=== PATIENT | male | born 1960 | race Caucasian/White ===

== ENCOUNTER 2016-10-11 15:44 | Emergency (ER) | payer BC ==
[~2016-10-11] VITALS: Ht 176.5 cm; Wt 70.3 kg
[2016-10-11] MEDS ORDERED: OLME1TAB35 PO (16:08)
--- NOTE | 2016-10-11 16:11 | EKG ---
[facility] [address] [place] [address] Test Date: 2016-10-11 Test Time: 15:53:27 Pat Name: HALIE CACERES Department: Room: Gender: M Senior Accounting Clerk: : 1960 Requested By: ANKITA COSME Order Number: [id number] Reading MD: Vashti Sierra Measurements Intervals [place] Rate: 64 P: 45 WI: 164 QRS: 16 QRSD: 80 T: 24 QT: 384 QTc: 400 Interpretive Statements SINUS RHYTHM NORMAL ECG Electronically Signed On 10-15-2016 9:25:40 CDT by Vashti Sierra
[2016-10-11] MEDS ORDERED: ASPIRIN ENTERIC COATED 325 MG TABLET.DR. PO ONE (16:15)
[2016-10-11 16:53] LABS: BASO # 0.1 x10^3/uL (0.0-0.2); BASO % 1 % (0-3); EOS % 1 % (0-3); HEMATOCRIT 39.7 % (39.0-53.0); HEMOGLOBIN 13.3 g/dL (13.0-17.5); LYMPH # 1.1 x10^3/uL (1.0-4.8); LYMPH % 12 % (24-48); MEAN CORPUSCULAR HEMOGLOBIN 31 pg (25-35); MEAN CORPUSCULAR HGB CONC 33 g/dL (31-37); MEAN CORPUSCULAR VOLUME 93 fL (79-100); MONO % 6 % (0-9); NEUT % 80 % (31-73); PLATELET COUNT 236 x10^3/uL (140-400); RED BLOOD COUNT 4.28 x10^6/uL (4.30-5.70); RED CELL DISTRIBUTION WIDTH 14.2 % (11.5-14.5)
[2016-10-11 17:00] VITALS: BP 145/85
[2016-10-11 17:03] LABS: CALCIUM 9.5 mg/dL (8.5-10.1); GFR 77.3; PROTHROMBIN TIME PATIENT 12.5 SEC (11.7-14.0)
[2016-10-11 17:07] LABS: CREATINE KINASE 231 U/L (39-308)
[2016-10-11 17:08] LABS: ALBUMIN 4.2 g/dL (3.4-5.0); ALBUMIN/GLOBULIN RATIO 1.3 (1.0-1.7); TOTAL BILIRUBIN 0.3 mg/dL (0.2-1.0); TOTAL PROTEIN 7.4 g/dL (6.4-8.2)
[2016-10-11 17:09] LABS: BILIRUBIN,URINE NEGATIVE (NEG); GLUCOSE,URINE NEGATIVE (NEG); NITRITE,URINE NEGATIVE (NEG); PROTEIN,URINE NEGATIVE (NEG-TRACE); UROBILINOGEN,URINE 0.2 mg/dL (0.2 mg/dL)
[2016-10-11] MEDS ORDERED: IOHEXOL 300 MG/ML 75 ML VIAL ONE (17:11)
[2016-10-11 17:15] LABS: BARBITURATES NEG (NEG); BENZODIAZEPINES NEG (NEG); CANNABINOIDS POS (NEG); COCAINE NEG (NEG); METHADONE NEG (NEG); OPIATES NEG (NEG); PHENCYCLIDINE NEG (NEG)
[2016-10-11] MEDS ORDERED: IOHEXOL 300 MG/ML 75 ML VIAL IV ONE ×2 (17:15→18:00)
[2016-10-11] MEDS ORDERED: CONTRAST GIVEN MC PRN (17:15)
[2016-10-11 17:23] LABS: BACTERIA,URINE 0 /HPF (0-FEW); RBC,URINE 0 /HPF (0-2); WBC,URINE RARE /HPF (0-4)
--- NOTE | 2016-10-11 17:35 | RAD ---
Portable chest, 10/11/2016: History: Chest pain The heart size and pulmonary vascularity are normal. The lungs are clear. There is no evidence of pleural fluid. IMPRESSION: No acute cardiopulmonary abnormality is detected.
--- NOTE | 2016-10-11 17:48 | RAD ---
Examination: CT abdomen and pelvis with IV contrast Technique: Axial CT images of the abdomen pelvis were performed with IV contrast. Coronal and sagittal deformities are performed HISTORY: History of abdominal pain for 3 months COMPARISON: None Exposure: One or more of the following individualized dose reduction techniques were utilized for this examination: 1. Automated exposure control 2. Adjustment of the mA and/or kV according to patient size 3. Use of iterative reconstruction technique FINDINGS: Bibasilar lungs are clear. No evidence of free air identified in the abdomen. The visualized liver, spleen, adrenals grossly appears unremarkable. The gallbladder is mildly distended. The stomach is mildly distended. There is mild thickened appearance of the wall of the stomach. The small bowel is nondilated. The visualized appendix grossly appears unremarkable. Feces and gas noted in the colon. Moderate amount of stool noted throughout the colon. Urinary bladder is mildly distended. Bilateral kidneys enhance symmetrically. Moderate aortic atherosclerosis. The visualized pancreas grossly appears unremarkable. Sclerotic densities identified in the superior endplate of L4 inferior endplate of L3 likely secondary to degenerative changes. Moderate degenerative changes lumbar spine. IMPRESSION: 1. No acute intra-abdominal findings. There is mild thickened appearance of the stomach wall probably due to mild distention or gastritis. Electronically signed by: Bari Ibarra MD (10/11/2016 5:44 PM) [facility]
--- NOTE | 2016-10-11 17:54 | PHYS DOC ---
Past Medical History Past Medical History: High Cholesterol, Hypertension Past Surgical History: No Surgical History Alcohol Use: None Drug Use: Marijuana Adult General Chief Complaint Chief Complaint: CHEST WALL PAIN HPI HPI Patient is a 56 year old male presenting to the emergency department for evaluation of abdominal pain dizziness weight loss generalized fatigue and malaise. Patient says the generalized malaise and fatigue has been going on for 4-5 months but he is stubborn and has not seen a physician. He says that he has been urinating more than usual and he has lost approximately 30 pounds over the past 4 months. Triage note says that he has chest pain however on exam this is actually epigastric abdominal pain. He says that this symptom has been going on for 2 months and he seems to have a persistent discomfort however certain movements of his torso and eating to make it worse. He says that he has been drinking plenty of fluids but he has not been eating very much. He says that he has chronic alcoholism but he has stopped over the past several months. Denies any vomiting black or bloody stools chest pain shortness of breath diaphoresis unilateral weakness numbness or tingling. The dizziness is present really present when he sits up or stands up and when he walks around. He says that it is a sensation that he is going to pass out and there is no room spinning. He just feels lightheaded but there has been no syncope episodes. Review of Systems Review of Systems Constitutional: Denies fever or chills [] Eyes: Denies change in visual acuity, redness, or eye pain [] HENT: Denies nasal congestion or sore throat [] Respiratory: Denies cough or shortness of breath [] Cardiovascular: No additional information not addressed in HPI [] GI: + abdominal pain. No nausea, vomiting, bloody stools or diarrhea [] : Denies dysuria or hematuria [] Musculoskeletal: Denies back pain or joint pain [] Integument: Denies rash or skin lesions [] Neurologic: Denies headache, focal weakness. + dizziness sensory changes [] Current Medications Current Medications Current Medications Medications (Trade) Dose Ordered Sig/Brent Start Time Stop Time Status Last Admin Dose Admin Aspirin (Ecotrin) 325 mg 1X ONCE 10/11/16 16:15 10/11/16 16:16 DC 10/11/16 16:51 325 MG Info (Do NOT chart on this entry -- for MONITORING) 1 each PRN DAILY PRN 10/11/16 17:15 10/13/16 17:14 Iohexol (Omnipaque 300 Mg/ml) 75 ml 1X ONCE 10/11/16 18:00 10/11/16 18:01 DC Allergies Allergies Allergies Coded Allergies Type Severity Reaction Last Updated Verified No Known Drug Allergies 10/11/16 No Physical Exam Physical Exam Constitutional: Well developed, well nourished, no acute distress, non-toxic appearance. [] HENT: Normocephalic, atraumatic, bilateral external ears normal, oropharynx moist, no oral exudates, nose normal. [] Eyes: PERRLA, EOMI, conjunctiva normal, no discharge. [] Neck: Normal range of motion, no tenderness, supple, no stridor. [] Cardiovascular:Heart rate regular rhythm, no murmur [] Lungs & Thorax: Bilateral breath sounds clear to auscultation [] Abdomen: Bowel sounds normal, soft, + epigastric tenderness, no rebound, guarding, no masses, no pulsatile masses. [] Skin: Warm, dry, no erythema, no rash. [] Back: No tenderness, no CVA tenderness. [] Extremities: No tenderness, no cyanosis, no clubbing, ROM intact, no edema. [] Neurologic: Alert and oriented X 3, normal motor function, normal sensory function, no focal deficits noted. [] Current Patient Data Vital Signs Vital Signs Date Time Temp Pulse Resp B/P (MAP) Pulse Ox O2 Delivery O2 Flow Rate FiO2 10/11/16 15:53 98.9 68 18 142/92 (109) 97 Room Air 98.9 Lab Values Laboratory Tests Test 10/11/16 16:30 10/11/16 17:00 White Blood Count 9.0 x10^3/uL (4.0-11.0) Red Blood Count 4.28 x10^6/uL (4.30-5.70) L Hemoglobin 13.3 g/dL (13.0-17.5) Hematocrit 39.7 % (39.0-53.0) Mean Corpuscular Volume 93 fL (79-100) Mean Corpuscular Hemoglobin 31 pg (25-35) Mean Corpuscular Hemoglobin Concent 33 g/dL (31-37) Red Cell Distribution Width 14.2 % (11.5-14.5) Platelet Count 236 x10^3/uL (140-400) Neutrophils (%) (Auto) 80 % (31-73) H Lymphocytes (%) (Auto) 12 % (24-48) L Monocytes (%) (Auto) 6 % (0-9) Eosinophils (%) (Auto) 1 % (0-3) Basophils (%) (Auto) 1 % (0-3) Neutrophils # (Auto) 7.2 x10^3uL (1.8-7.7) Lymphocytes # (Auto) 1.1 x10^3/uL (1.0-4.8) Monocytes # (Auto) 0.5 x10^3/uL (0.0-1.1) Eosinophils # (Auto) 0.1 x10^3/uL (0.0-0.7) Basophils # (Auto) 0.1 x10^3/uL (0.0-0.2) Prothrombin Time 12.5 SEC (11.7-14.0) Prothrombin Time INR 1.0 (0.8-1.1) PTT 24 SEC (24-38) Sodium Level 143 mmol/L (136-145) Potassium Level 4.0 mmol/L (3.5-5.1) Chloride Level 103 mmol/L (98-107) Carbon Dioxide Level 31 mmol/L (21-32) Anion Gap 9 (6-14) Blood Urea Nitrogen 9 mg/dL (8-26) Creatinine 1.0 mg/dL (0.7-1.3) Estimated GFR (Cockcroft-Gault) 77.3 BUN/Creatinine Ratio 9 (6-20) Glucose Level 111 mg/dL (70-99) H Calcium Level 9.5 mg/dL (8.5-10.1) Total Bilirubin 0.3 mg/dL (0.2-1.0) Aspartate Amino Transferase (AST) 21 U/L (15-37) Alanine Aminotransferase (ALT) 26 U/L (16-63) Alkaline Phosphatase 45 U/L (46-116) L Creatine Kinase 231 U/L (39-308) Troponin I Quantitative < 0.017 ng/mL (0.000-0.055) BW-Vjh-L-Type Natriuretic Peptide 260 pg/mL (0-124) H Total Protein 7.4 g/dL (6.4-8.2) Albumin 4.2 g/dL (3.4-5.0) Albumin/Globulin Ratio 1.3 (1.0-1.7) Lipase 169 U/L (73-393) Ethyl Alcohol Level < 10 mg/dL (0-10) Urine Collection Type Unknown Urine Color Yellow Urine Clarity Clear Urine pH 7.0 Urine Specific [place] <=1.005 Urine Protein Negative mg/dL (NEG-TRACE) Urine Glucose (UA) Negative mg/dL (NEG) Urine Ketones (Stick) Negative mg/dL (NEG) Urine Blood Negative (NEG) Urine Nitrite Negative (NEG) Urine Bilirubin Negative (NEG) Urine Urobilinogen Dipstick 0.2 mg/dL (0.2 mg/dL) Urine Leukocyte Esterase Negative (NEG) Urine RBC 0 /HPF (0-2) Urine WBC Rare /HPF (0-4) Urine Squamous Epithelial Cells None /LPF Urine Bacteria 0 /HPF (0-FEW) Urine Opiates Screen Neg (NEG) Urine Methadone Screen Neg (NEG) Urine Barbiturates Neg (NEG) Urine Phencyclidine Screen Neg (NEG) Urine Amphetamine/Methamphetamine Neg (NEG) Urine Benzodiazepines Screen Neg (NEG) Urine Cocaine Screen Neg (NEG) Urine Cannabinoids Screen Pos (NEG) Urine Ethyl Alcohol Neg (NEG) Laboratory Tests 10/11/16 16:30 Laboratory Tests 10/11/16 16:30 EKG EKG Sinus rhythm at 64 bpm with normal axis no obvious ST elevation or depression and normal T waves. Radiology/Procedures Radiology/Procedures Examination: CT abdomen and pelvis with IV contrast Technique: Axial CT images of the abdomen pelvis were performed with IV contrast. Coronal and sagittal deformities are performed HISTORY: History of abdominal pain for 3 months COMPARISON: None Exposure: One or more of the following individualized dose reduction techniques were utilized for this examination: 1. Automated exposure control 2. Adjustment of the mA and/or kV according to patient size 3. Use of iterative reconstruction technique FINDINGS: Bibasilar lungs are clear. No evidence of free air identified in the abdomen. The visualized liver, spleen, adrenals grossly appears unremarkable. The gallbladder is mildly distended. The stomach is mildly distended. There is mild thickened appearance of the wall of the stomach. The small bowel is nondilated. The visualized appendix grossly appears unremarkable. Feces and gas noted in the colon. Moderate amount of stool noted throughout the colon. Urinary bladder is mildly distended. Bilateral kidneys enhance symmetrically. Moderate aortic atherosclerosis. The visualized pancreas grossly appears unremarkable. Sclerotic densities identified in the superior endplate of L4 inferior endplate of L3 likely secondary to degenerative changes. Moderate degenerative changes lumbar spine. IMPRESSION: 1. No acute intra-abdominal findings. There is mild thickened appearance of the stomach wall probably due to mild distention or gastritis. Electronically signed by: Bari Ibarra MD (10/11/2016 5:44 PM) [facility] DICTATED and SIGNED BY: BARI IBARRA MD DATE: 10/11/161737 Portable chest, 10/11/2016: History: Chest pain The heart size and pulmonary vascularity are normal. The lungs are clear. There is no evidence of pleural fluid. IMPRESSION: No acute cardiopulmonary abnormality is detected. DICTATED and SIGNED BY: ALEXA DORMAN MD DATE: 10/11/161731 Course & Med Decision Making Course & Med Decision Making Patient's CT consistent with gastritis which goes along with his clinical picture as well. Patient's labs are unremarkable and his EKG are 2 troponin are negative more than 6 hours out from the onset of his epigastric pain. His heart score is equal to 2 and is safe for outpatient treatment in my opinion especially considering I do not think this is cardiac rather it is gastrointestinal related. His BNP is slightly elevated which I discussed with him and he could follow with cardiology and get an outpatient echocardiogram if desired. Patient says he has been urinating a lot so I will stop him on his diuretic given he has not been taking his medications as prescribed anyways. He says he takes a half dose every once a while so we will adjust his medications to just the Norvasc and olmesartan. Patient aware and agreeable with plan for discharge and verbalized understanding of the need for short-term follow-up and strict ER return precautions discussed worsening pain fevers vomiting or other general concerns. Dragon Disclaimer Dragon Disclaimer This electronic medical record was generated, in whole or in part, using a voice recognition dictation system. Departure Departure Impression: Primary Impression: Dizziness Additional Impressions: Abdominal pain Elevated brain natriuretic peptide (BNP) level Disposition: 01 HOME, SELF-CARE Condition: GOOD Referrals: ZULMA ESPINOZA MD (PCP) RUBA JAMESON MD Patient Instructions: Gastritis, Adult Additional Instructions: KEEP DRINKING PLENTY OF FLUIDS. STOP TAKING YOUR PRESCRIBED BLOOD PRESSURE MEDICATION AND TAKE THE MEDICATIONS I PRESCRIBED. FOLLOW WITH YOUR PCP THIS WEEK AND THE GI DOC [facility]. THANK YOU! Scripts Olmesartan Medoxomil (BENICAR) 40 Mg Tablet 1 TAB PO DAILY, #30 TAB 0 Refills Prov: ANKITA COSME DO 10/11/16 Amlodipine Besylate (NORVASC) 5 Mg Tablet 1 TAB PO DAILY, #30 TAB 0 Refills Prov: ANKITA COSME DO 10/11/16 Omeprazole Magnesium (PRILOSEC OTC) 20 Mg Tablet. 2 TAB PO DAILY, #30 TAB 2 Refills Prov: ANKITA COSME DO 10/11/16 Problem Qualifiers ANKITA COSME DO Oct 11, 2016 17:54
[2016-10-11] MEDS ORDERED: AMLO5TAB4 PO (18:16)
[2016-10-11] MEDS ORDERED: OMEP20TA63 PO (18:16)
[2016-10-11] MEDS ORDERED: OLME40TA12 PO (18:16)
== END 2016-10-11 18:30 | disposition home or self-care (01) ==
LOC: ER 15:44
DX: R10.13 Epigastric pain (principal); E78.00 Pure hypercholesterolemia, unspecified; R42 Dizziness and giddiness; R53.83 Other fatigue; I10 Essential (primary) hypertension; Z91.14 Patient's other noncompliance with medication regimen; Z79.82 Long term (current) use of aspirin
CPT/HCPCS: 36415; 71010; 74177; 80053; 80307; 81001; 82550; 83690; 83880; 84484; 85025; 85610; 85730; 93005; 99285; G0480; G0479

== ENCOUNTER → 2016-10-28 | Day surgery (SDC) | payer BC ==
[~2016-10-28] MED LIST: AMLO5TAB4 PO; HYDROmorphone 2 MG/ML VIAL IV PRN; IV RINGERS,LACTATED 1000ML 1,000 ML IV SCH; LIDOCAINE 1% PF 2 ML VIAL. ID PRN; LIDOCAINE 2% PF Vial for OR 5 ML VIAL. ONE; MORPHINE SULFATE 2 MG/ML DISP.SYRIN. IV PRN; OLME1TAB35 PO; OLME40TA12 PO; OMEP20TA63 PO; ONDANSETRON PF 4 MG/2 ML VIAL. IV PRN; PROCHLORPERAZINE 10 MG/2 ML VIAL. IV PRN; PROPOFOL 20 ML IV ONE; fentaNYL PF VIAL 100 MCG/2 ML VIAL IV PRN
[2016-10-28 07:50] VITALS: BP 93/51
== END | disposition home or self-care (01) ==
LOC: ENDOS 05:59
PROVIDERS: ATTEND Internal Medicine Gastroenterology
DX: Z12.11 Encounter for screening for malignant neoplasm of colon (principal); K64.0 First degree hemorrhoids; K29.50 Unspecified chronic gastritis without bleeding; I10 Essential (primary) hypertension; M19.049 Primary osteoarthritis, unspecified hand; F41.9 Anxiety disorder, unspecified; F32.9 Major depressive disorder, single episode, unspecified; Z87.39 Personal history of other diseases of the musculoskeletal system and connective tissue; Z86.69 Personal history of other diseases of the nervous system and sense organs; Z88.6 Allergy status to analgesic agent; Z88.1 Allergy status to other antibiotic agents; Z88.0 Allergy status to penicillin
CPT/HCPCS: 43235; 45378; J2704; J2001

== ENCOUNTER → 2017-12-15 | Outpatient (CLI) | payer BC ==
[2016-10-28 07:50] VITALS: BP 93/51
[~2017-12-15] MED LIST changes: -HYDROmorphone 2 MG/ML VIAL IV PRN; -IV RINGERS,LACTATED 1000ML 1,000 ML IV SCH; -LIDOCAINE 1% PF 2 ML VIAL. ID PRN; -LIDOCAINE 2% PF Vial for OR 5 ML VIAL. ONE; -MORPHINE SULFATE 2 MG/ML DISP.SYRIN. IV PRN; -ONDANSETRON PF 4 MG/2 ML VIAL. IV PRN; -PROCHLORPERAZINE 10 MG/2 ML VIAL. IV PRN; -PROPOFOL 20 ML IV ONE; -fentaNYL PF VIAL 100 MCG/2 ML VIAL IV PRN
--- NOTE | 2017-12-15 15:09 | RAD ---
MRI of the cervical spine without contrast 12/15/2017 CLINICAL HISTORY: Neck pain which radiates down both arms. TECHNIQUE: Unenhanced T1-weighted, T2-weighted and inversion recovery sagittal and gradient echo and T2-weighted axial images of the cervical spine were obtained. FINDINGS: Comparison is made to radiographs of the cervical spine dated 12/11/2017. Minimal lateral curvature of the cervical spine is seen convex to the right. There is straightening of the normal cervical lordosis. Degenerative signal changes are seen involving all of the disks of the cervical spine. Degenerative signal changes are seen within the marrow surrounding the C5-6 and C6-7 discs. No area of abnormal signal intensity is seen involving the cervical spinal cord. At the C2-3, C3-4 and C4-5 disc spaces there are minimal to mild generalized disc bulges. Degenerative changes are seen involving the uncovertebral and facet joints bilaterally. These findings do not result in significant central spinal canal or neural foraminal stenosis. At the C5-6 disc space there is a mild to moderate generalized disc bulge. Degenerative changes are seen involving the uncovertebral and facet joints bilaterally. These findings efface the anterior CSF resulting in mild central spinal canal stenosis without evidence of cord impingement. Mild to moderate bilateral neural foraminal stenosis is seen. At the C6-7 disc space there is a moderate generalized disc bulge. This is eccentric to the right. Degenerative changes are seen involving the uncovertebral and facet joints, right greater than left. These findings when combined do not result in significant central spinal canal stenosis. Mild to moderate right greater than left neural foraminal stenosis is seen. At the C7-T1 disc space there is a minimal generalized disc bulge. Degenerative changes are seen involving the facet joints bilaterally. These findings do not result in significant central spinal canal or neural foraminal stenosis. IMPRESSION: Degenerative changes are seen throughout the cervical spine. These findings result in mild central spinal canal stenosis without evidence of cord impingement at C5-6. Mild to moderate bilateral neural foraminal stenosis is seen at C5-6. Mild to moderate right greater than left neural foraminal stenosis is seen at C6-7. Electronically signed by: Nikhil Clemens MD (12/15/2017 3:06 PM) [facility]
== END | disposition home or self-care (01) ==
LOC: MRI 10:35
PROVIDERS: ATTEND Physician Assistant Surgical
DX: M50.31 Other cervical disc degeneration, high cervical region (principal); M47.892 Other spondylosis, cervical region; M48.02 Spinal stenosis, cervical region
CPT/HCPCS: 72141

== ENCOUNTER → 2018-02-01 | Outpatient (CLI) | payer BC ==
[2016-10-28 07:50] VITALS: BP 93/51
[~2018-02-01] MED LIST changes: +ATOR10TA60 PO; +IOHEXOL 180 MG/ML 10 ML VIAL. ONE; +methylPREDNISolone ACETATE 40 MG/ML VIAL. ONE; +methylPREDNISolone ACETATE 80 MG/ML VIAL. ONE
--- NOTE | 2018-02-01 22:41 | PAIN ---
DATE OF SERVICE: 02/01/2018 INITIAL CONSULTATION FOR PAIN CLINIC CHIEF COMPLAINT: Neck and right upper extremity pain. HISTORY OF PRESENT ILLNESS: This is a 58-year-old male who presents with history of pain for about 1 year, increasing gradually, not a result of any specific injury or action he has been aware of but still very active. He is a musician and plays the keyboard and also was doing some wood chopping about a year ago, which seems to exacerbate the pain, has not gone away. The patient reports it has been getting worse gradually over the past year, increasing in the base of the neck, right shoulder, right upper extremity, right posterior shoulder blade into the posterior deltoid, posterior trapezius, anterior bicep into the forearm and wrist with some numbness and tingling in the hand. The patient reports it is throbbing, radiating, changes during the day, worse with activity, repetitive motions, lifting items with his right arm, burning, cramping, aching, also some numbness and tingling in the right arm as well but without any specific loss of motor function. The patient reports his arm does fatigue more easily than the left side with repetitive motions, even which is raising his arm up over his head or using it to drive a car with a steering wheel. The patient reports it awakens him from sleep about 4 times every night when he lies on the right side, especially does not affect his bowel or bladder control or ability to walk. The patient reports he has had chiropractic treatment as well as doing exercises on his own, which has helped but only mildly. The patient is taking ibuprofen, which helps as well but only about 20%. The patient rates his disability rate from 0-10, 10 being the worst, is a 6 with family and home responsibilities, 8 with recreation, 7 with occupation and life support activities, 3 with social activity and sexual behavior, 2 with self-care activities. The patient did have MRI scan of the cervical spine showing mild central spinal canal stenosis without evidence of cord impingement at C5-C6 and [id number] bilateral neural foraminal stenosis at C5-C6 and [id number] right greater than left neural foraminal stenosis at C6-C7. PAST MEDICAL HISTORY: Significant for hypertension, dizziness, arthritis, gastritis, hyperlipidemia, anxiety, panic attacks and depression. PAST SURGICAL HISTORY: No previous surgeries. CURRENT MEDICATIONS: Include amlodipine, atorvastatin and multivitamin. ALLERGIES: The patient has no known drug allergies. FAMILY HISTORY: Significant for no major medical problems or conditions he is aware of. SOCIAL HISTORY: The patient does not drink alcohol, smokes marijuana occasionally, but not routinely. Does not use any illegal, illicit or recreational drugs. No other tobacco products. The patient is and lives with his spouse locally in [place], [place] and once again, the patient is retired from [employer] and is a keyboard player, musician and junior copywriter. REVIEW OF SYSTEMS: The patient's review of systems is positive for those items mentioned in history of present illness. All systems reviewed and otherwise negative. It is complete, full and well documented on the patient's chart. PHYSICAL EXAMINATION: VITAL SIGNS: The patient's blood pressure is 164/100, pulse 68, respirations 18 and temperature 98.2 degrees Fahrenheit. Height is 5 feet 10 inches and weight is 155 pounds. GENERAL: The patient is awake, alert, oriented, appropriate and very pleasant demeanor. HEENT: Head is normocephalic and atraumatic. Extraocular movements are intact and symmetrical. Oral cavity: Mucous membranes moist and pink. Dentition is intact. NECK: Shows anterior throat supple without palpable lymphadenopathy noted. Swallow reflex symmetrical. CHEST: Shows normal with inspection. Breath sounds clear to auscultation bilaterally. HEART: Shows S1 and S2 clear. No murmurs auscultated. ABDOMEN: Soft, nontender and nondistended. No palpable organomegaly is noted. No rebound or guarding demonstrated. BACK: Shows spine grossly in the midline. Normal appearing thoracic kyphosis and lumbar lordotic curvature. Cervical lordotic curvature is intact and symmetrical. Paraspinous musculature shows symmetrical on inspection in the cervical distribution without evidence of atrophy or hypertrophy. The patient has good rotational motion of the cervical spine, both laterally greater than 45 degrees closer to 90 degrees, both right and left without significant pain reported. Mild discomfort in the base of the right neck with extension but not with forward flexion. The patient's posterior cervical musculature shows symmetrical on inspection, on palpation shows some moderate tenderness only in the inferior aspect of the posterior cervical musculature into the superior medial trapezius, more in the right than the left but again no asymmetry and no trigger points or radiation of pain is demonstrated. EXTREMITIES: The patient's upper extremities show deep tendon reflexes 2+ in the biceps and triceps tendons. Motor exam is strong with scale balancer strength rated at 5/5 as his bicep and tricep flexion. Shoulder shrug is strong and intact with some mild tenderness in the right base of the shoulder with resistance and no loss of strength and this is true with abduction of the shoulder to 90 degrees as well. Pain in the right base of the shoulder and neck with resistance but no loss of strength. Peripheral pulses are 2+ radial distribution. No peripheral edema is noted. Upper extremities are warm and dry to touch, equal in color and appearance. The patient's skin shows warm and dry, good turgor. No edema. No sores, rashes or bruising. IMPRESSION: 1. This is a 58-year-old male with approximately 1-year history of increasing pain, base of the neck, right upper extremity in radicular fashion. 2. MRI scan of cervical spine as noted. 3. History of arthritis. 4. History of hypertension. 5. Marijuana use. PLAN: Options were discussed with the patient including conservative medical management, physical therapy, interventional technique. He would like to pursue interventional techniques. We discussed a cervical epidural steroid injection using description as well as anatomical models to describe the procedure. Risks were then discussed including, but not limited to bleeding, infection, possibility of epidural hematoma and subsequent neurological compromise, dural puncture, headaches, spinal cord and/or nerve damage, side effects of steroid medication and poor results regarding pain control. The patient understands and wished to proceed. The patient will return to the clinic in approximately 2 weeks for followup, was counseled as to return appointment, activity level and side effects to be aware of. DIAGNOSES: Cervical radiculopathy, cervical spinal stenosis and cervical degenerative disk disease. PROCEDURE: Cervical epidural steroid injection in translaminar approach, C6-C7 level using C-arm fluoroscopic guidance under sterile prep and drape using local anesthetic. MEDICATION INJECTED: A total of 120 mg Depo-Medrol plus 5 mL of preservative-free normal saline and 2 mL of Isovue for contrast. CONDITION AT DISCHARGE: Stable. The patient tolerated the procedure well and had no complications. FRANCISCA AVINA MD DR: RON/kiara JOB#: [id number] / [id number] BRIAN Steele
== END | disposition home or self-care (01) ==
LOC: PNCL 07:38
PROVIDERS: ATTEND Anesthesiology
DX: M50.123 Cervical disc disorder at C6-C7 level with radiculopathy (principal); M48.02 Spinal stenosis, cervical region; I10 Essential (primary) hypertension; F32.9 Major depressive disorder, single episode, unspecified; F41.0 Panic disorder [episodic paroxysmal anxiety]; E78.5 Hyperlipidemia, unspecified; F12.90 Cannabis use, unspecified, uncomplicated; M19.90 Unspecified osteoarthritis, unspecified site; Z79.899 Other long term (current) drug therapy; Z88.0 Allergy status to penicillin; Z88.5 Allergy status to narcotic agent; Z88.1 Allergy status to other antibiotic agents
CPT/HCPCS: 62321; J1030; J1040; Q9965

== ENCOUNTER → 2018-02-15 | Outpatient (CLI) | payer BC ==
[2016-10-28 07:50] VITALS: BP 93/51
[~2018-02-15] MED LIST changes: +BUPIVACAINE MPF 0.25% 10 ML VIAL. ONE; -methylPREDNISolone ACETATE 40 MG/ML VIAL. ONE
--- NOTE | 2018-02-15 09:15 | PAIN ---
DATE OF SERVICE: 02/15/2018 DIAGNOSES: 1. Cervical radiculopathy with cervical degenerative disk disease and cervical spinal stenosis. 2. Right biceps tendinitis. HISTORY OF PRESENT ILLNESS: This patient is a 58-year-old male who returns for followup status post cervical epidural steroid injection x 1. The patient reports about 80% improvement overall in the base of the neck and right upper extremity. The patient reports he is doing very well, sleeping better at night and increased his activity with greater ease and comfort during the day for the distances with activity, repetitive motions to right upper extremity. The patient's main complaint is some tenderness in the anterior aspect of the right shoulder now which is separate from that of his neck as he is doing much better in that regard. The patient reports pain in the anterior aspect at the front of the shoulder, aching, dull, tingling, shooting, occasionally with some tingling into the right thumb and elbow, but the neck and scapula doing much better. The patient reports his pain is 6 on a scale of 10 at its worse, 5 on average, 2 at its least and is a 5 today. The patient reports no new motor or sensory deficits, no new changes. PHYSICAL EXAMINATION: VITAL SIGNS: The patient's blood pressure 169/93, pulse 66, respirations 16, temperature 98.0 degrees Fahrenheit. Weight 156 pounds. GENERAL: The patient is awake, alert, oriented, appropriate, very pleasant demeanor. HEENT: Head is normocephalic, atraumatic. Extraocular movements intact and symmetrical. Oral cavity: Mucous membranes moist and pink. Dentition is intact. NECK: Shows anterior throat supple without palpable lymphadenopathy noted. Swallow reflex symmetrical. CHEST: Shows normal on inspection. Breath sounds are clear to auscultation bilaterally. HEART: Shows S1, S2 clear. No murmurs auscultated. ABDOMEN: Soft, nontender, nondistended. No palpable organomegaly is noted. No rebound or guarding demonstrated. SPINE: The patient's back shows spine grossly in the midline. Cervical paraspinous muscle shows symmetrical on inspection with normal cervical lordotic curvature. With palpation shows only very mild tenderness in the inferior aspect of the cervical paraspinous musculature without radiation. The patient has full rotational motion of cervical spine, both laterally as well as extension and flexion without tenderness. EXTREMITIES: The patient's upper extremities show deep tendon reflexes of 2+ in biceps and triceps tendons. Motor exam is strong with test examiner strength rated 5/5, as is bicep and tricep flexion. With palpation over the anterior aspect of the right deltoid and bicep tendon, some significant tenderness, very tender with palpation in the biceps groove on the right side with the arm externally rotated and supinated with the hand. Left side is nontender. The patient has good rotational motion, however, full rotation both laterally as well as extension and flexion, right and left shoulders as well as anterior reach and posterior displacement without significant loss of range. Peripheral pulses are 2+ radial distribution. No peripheral edema is noted. Options were discussed with the patient. The patient's old chart was reviewed as his current medication regimen updated. Current review of systems updated today as well. We will proceed with a right biceps tendon injection with fluoroscopic guidance. Risks were again discussed including, but not limited to bleeding, infection, possibility of intravascular injection sequelae, spread of local anesthetic and numbness, side effects of steroid medication and poor results regarding pain control. The patient understands and wished to proceed. The patient will return to clinic in approximately 2 weeks for followup, was counseled on return appointment, activity level and side effects to be aware of. DIAGNOSIS: Right biceps tendinitis. PROCEDURE: Right biceps tendon injection using C-arm fluoroscopic guidance under sterile prep and drape using local anesthetic. MEDICATION INJECTED: A total of 80 mg of Depo-Medrol plus 3 mL of 0.25% bupivacaine and 2 mL of Isovue for contrast. CONDITION AT DISCHARGE: Stable. The patient tolerated the procedure well, had no complications. FRANCISCA AVINA MD DR: RON/kiara JOB#: [id number] / [id number]
== END | disposition home or self-care (01) ==
LOC: PNCL 07:53
PROVIDERS: ATTEND Anesthesiology
DX: M75.21 Bicipital tendinitis, right shoulder (principal); M48.02 Spinal stenosis, cervical region; M50.10 Cervical disc disorder with radiculopathy, unspecified cervical region; Z88.0 Allergy status to penicillin; Z88.5 Allergy status to narcotic agent; Z88.1 Allergy status to other antibiotic agents
CPT/HCPCS: 20551; 77002; J1040; J3490; Q9965